=== PATIENT | male | born 1960 | race Hispanic/Latino ===

== ENCOUNTER 2020-03-23 11:24 | Emergency (ER) | payer OTHER ==
[2020-03-23] MEDS ORDERED: Lidocaine 1% (PF) 30 ML VIAL ONE (13:07)
[2020-03-23] MEDS ORDERED: Bupivacaine 0.5% 10 ML VIAL ONE (13:07)
== END 2020-03-23 14:10 | disposition home or self-care (01) ==
LOC: ERS 11:24
DX: S62.635A Displaced fracture of distal phalanx of left ring finger, initial encounter for closed fracture (principal); I10 Essential (primary) hypertension; E11.9 Type 2 diabetes mellitus without complications; E78.5 Hyperlipidemia, unspecified; E78.00 Pure hypercholesterolemia, unspecified; Z23 Encounter for immunization; W23.0XXA Caught, crushed, jammed, or pinched between moving objects, initial encounter; Y99.0 Civilian activity done for income or pay; Z79.82 Long term (current) use of aspirin; Z79.899 Other long term (current) drug therapy
CPT/HCPCS: 11760; J2001; J3490